=== PATIENT | male | born 1975 | race Caucasian/White ===

== ENCOUNTER 2018-05-17 14:31 | Emergency (ER) | payer OTHER ==
[~2018-05-17] VITALS: Ht 177.8 cm; Wt 78.2 kg
[2018-05-17 14:34] VITALS: BP 141/90
[2018-05-17] MEDS ORDERED: IBUPROFEN 800 MG TABLET PO ONE (15:15)
== END 2018-05-17 17:19 | disposition home or self-care (01) ==
LOC: EMS 14:32
DX: S43.102A Unspecified dislocation of left acromioclavicular joint, initial encounter (principal); W05.1XXA Fall from non-moving nonmotorized scooter, initial encounter; Y93.89 Activity, other specified; Y92.89 Other specified places as the place of occurrence of the external cause; Y99.8 Other external cause status
CPT/HCPCS: 71110